=== PATIENT | female | born 1995 | race Native Hawaiian/Other Pacific Islander ===

== ENCOUNTER 2016-10-04 21:03 | Emergency (ER) | payer OTHER ==
[~2016-10-04] VITALS: Ht 170.2 cm; Wt 50.0 kg
[2016-10-04 21:16] VITALS: BP 111/75; PULSE 88; RESP 16; TEMP 98; O2SAT 99
--- NOTE | 2016-10-04 21:25 | PD ---
HPI Chief Complaint: Psychiatric Symptoms Time Seen by Provider: 21:15 Travel History International Travel<30 days: No Contact w/Intl Traveler<30days: No Traveled to known affect area: No History of Present Illness HPI 21-year-old female brought in by ambulance under Mehta act after intentionally cutting her left arm. Patient tells me that she told her RA in her dorm that she was feeling nauseous. At that time they discovered that the patient had intentional wounds to her left arm. Patient states that she did these to herself earlier today because she was mad. When asked specifically with the patient is mad about, she states she is matted everything. She did them with a shaving razor. She denies doing anything else to harm herself. She denies suicidal or homicidal ideation. PFSH Past Medical History Medical History: Denies Significant Hx Immunizations Current: Yes Tetanus Vaccination: < 5 Years Influenza Vaccination: No ?: Unknown LMP: 09/26/16 Past Surgical History Surgical History: No Previous Surgery Social History Alcohol Use: No Tobacco Use: No Substance Use: No Allergies-Medications (Allergen,Severity, Reaction): Coded Allergies: No Known Allergies (Unverified , 10/04/16) Reported Meds & Prescriptions Reported Meds & Active Scripts Active No Active Prescriptions or Reported Medications Review of Systems Except as stated in HPI: all other systems reviewed are Neg Physical Exam Narrative GENERAL: Well-developed, well-nourished, comfortable, no acute distress, tearful SKIN: Focused skin assessment warm/dry. Left anterior forearm with multiple superficial lacerations, a couple with slight venous oozing, none are deep enough to require closure HEAD: Atraumatic. Normocephalic. EYES: Pupils equal and round. No scleral icterus. No injection or drainage. ENT: Mucous membranes pink and moist. NECK: Trachea midline. No JVD. CARDIOVASCULAR: Regular rate and rhythm. Bilateral distal radial pulses are brisk and equal. RESPIRATORY: No accessory muscle use. Clear to auscultation. Breath sounds equal bilaterally. GASTROINTESTINAL: Abdomen soft, non-tender, nondistended. MUSCULOSKELETAL: No obvious deformities. No clubbing. No cyanosis. No edema. NEUROLOGICAL: Awake and alert. No obvious cranial nerve deficits. Motor grossly within normal limits. Normal speech. PSYCHIATRIC: Soft-spoken, poor eye contact, tearful Data Data Last Documented VS Vital Signs Date Time Temp Pulse Resp B/P Pulse Ox O2 Delivery O2 Flow Rate FiO2 10/04/16 21:16 98.0 88 16 111/75 99 Room Air Orders Complete Blood Count With Diff (10/04/16 21:20) Comprehensive Metabolic Panel (10/04/16 21:20) Ed Urine Pregnancytest Poc (10/04/16 21:20) Psych Screen (10/04/16 21:20) Drug Screen, Random Urine (10/04/16 21:20) Alcohol (Ethanol) (10/04/16 21:20) Salicylates (Aspirin) (10/04/16 21:20) Tylenol (Acetaminophen) (10/04/16 21:20) Labs Laboratory Tests Test 10/04/16 22:30 White Blood Count 6.6 TH/MM3 Red Blood Count 4.77 MIL/MM3 Hemoglobin 11.0 GM/DL Hematocrit 34.0 % Mean Corpuscular Volume 71.3 FL Mean Corpuscular Hemoglobin 23.1 PG Mean Corpuscular Hemoglobin 32.4 % Concent Red Cell Distribution Width 14.7 % Platelet Count 346 TH/MM3 Mean Platelet Volume 9.0 FL Neutrophils (%) (Auto) 62.4 % Lymphocytes (%) (Auto) 25.0 % Monocytes (%) (Auto) 12.1 % Eosinophils (%) (Auto) 0.1 % Basophils (%) (Auto) 0.4 % Neutrophils # (Auto) 4.1 TH/MM3 Lymphocytes # (Auto) 1.7 TH/MM3 Monocytes # (Auto) 0.8 TH/MM3 Eosinophils # (Auto) 0.0 TH/MM3 Basophils # (Auto) 0.0 TH/MM3 CBC Comment AUTO DIFF Sodium Level 138 MEQ/L Potassium Level 4.0 MEQ/L Chloride Level 102 MEQ/L Carbon Dioxide Level 26.0 MEQ/L Anion Gap 10 MEQ/L Blood Urea Nitrogen 11 MG/DL Creatinine 0.69 MG/DL Estimat Glomerular Filtration 107 ML/MIN Rate Random Glucose 82 MG/DL Calcium Level 9.0 MG/DL Total Bilirubin 1.2 MG/DL Aspartate Amino Transf 16 U/L (AST/SGOT) Alanine Aminotransferase 21 U/L (ALT/SGPT) Alkaline Phosphatase 59 U/L Total Protein 8.1 GM/DL Albumin 4.1 GM/DL Salicylates Level 1.7 MG/DL Acetaminophen Level LESS THAN 2.0 MCG/ML Ethyl Alcohol Level LESS THAN 3 MG/DL MDM Medical Decision Making Medical Screen Exam Complete: Yes Emergency Medical Condition: Yes Differential Diagnosis Depression, suicidal ideation, self inflicted wounds Narrative Course Vital signs are within normal limits. CBC shows WBC 6.6, hemoglobin 11, hematocrit 34, platelets 346. CMP is unremarkable. Alcohol level, Tylenol level, and salicylate levels are negative. Patient was made aware of the circumstances of a Mehta act. The patient is medically cleared for psychiatric evaluation and disposition by them. Diagnosis Primary Impression: Self-inflicted laceration of wrist Qualified Code: S61.512A - Self-inflicted laceration of wrist, left, initial encounter Scripts No Active Prescriptions or Reported Meds Efren Evans MD Oct 04, 2016 21:25
[2016-10-04 23:00] LABS: AUTOMATED NEUTROPHIL # 4.1 TH/MM3 (1.8-7.7); BASOPHIL % 0.4 % (0.0-2.0); EOSINOPHIL % 0.1 % (0.0-4.0); LYMPHOCYTE # 1.7 TH/MM3 (1.0-4.8); MEAN CELL VOLUME 71.3 FL (80.0-100.0); MEAN CORPUSCULAR HEMOGLOBIN 23.1 PG (27.0-34.0); MEAN CORPUSCULAR HGB CONC 32.4 % (32.0-36.0); MONO % 12.1 % (0.0-8.0); NEUT % 62.4 % (16.0-70.0); PLATELET COUNT 346 TH/MM3 (150-450); RED BLOOD COUNT 4.77 MIL/MM3 (4.00-5.30); RED CELL DISTRIBUTION WIDTH 14.7 % (11.6-17.2); WHITE BLOOD COUNT 6.6 TH/MM3 (4.0-11.0)
[2016-10-04 23:02] LABS: HEMO FLAGS AUTO DIFF
[2016-10-04 23:04] LABS: ANION GAP 10 MEQ/L (5-15)
[2016-10-04 23:07] LABS: ALKALINE PHOSPHATASE 59 U/L (45-117); ALT (GPT) 21 U/L (10-53); AST (GOT) 16 U/L (15-37); BLOOD UREA NITROGEN 11 MG/DL (7-18); CHLORIDE 102 MEQ/L (98-107); GLOMERULAR FILTRATION RATE 107 ML/MIN (>89); SODIUM (NA) 138 MEQ/L (136-145); TOTAL BILIRUBIN ADULT 1.2 MG/DL (0.2-1.0)
[2016-10-04 23:13] LABS: ACETAMINOPHEN LESS THAN 2.0 MCG/ML (10.0-30.0)
[2016-10-05 00:40] VITALS: BP 110/69; PULSE 79; RESP 16; O2SAT 99
[2016-10-05 00:49] LABS: AMPHETAMINE, URINE NEG (NEG); BARBITURATES, URINE NEG (NEG); COCAINE, URINE NEG (NEG)
[2016-10-05 01:16] LABS: SCAN/DIFF AUTO DIFF CONFIRMED
[2016-10-05 02:13] VITALS: BP 115/73; PULSE 88; RESP 16; O2SAT 100
[2016-10-05 06:33] VITALS: BP 132/72; PULSE 73; RESP 18; O2SAT 99
--- NOTE | 2016-10-05 11:10 | PD ---
History of Present Illness Chief Complaint: Psychiatric Symptoms Time Seen by Provider: 10:45 Travel History International Travel<30 Days: No Contact w/Intl Traveler<30days: No Known affected area: No Legal Status Legal Status: Mehta Act Mehta Act Signed By: Mady Loomis History of Present Illness: This is a 21-year-old female who is currently a student at [employer]. She is originally from [place] and is the first person in her family to go to college. She has taken an extraordinary load of courses this semester and is feeling remarkably stressed. As a result, she intentionally cut her wrist. She is terrified of her father's reaction that she may not do well academically this semester. She appears sad and dejected but does not report any suicidal ideation or plan at this time. In fact, she is verbally paulino for safety with this physician. This physician did spend considerable time counseling the patient. She declines antidepressant medication although it was offered. She did accept a letter of medical excuse to withdraw from 2 of her more difficult classes. She also is willing to return to outpatient therapy. Therefore she does not meet Mehta act criteria. She would like to return to school and try to finish her semester. PFSH Past Medical History Medical History: Denies Significant Hx Immunizations Current: Yes Tetanus Vaccination: < 5 Years Influenza Vaccination: No ?: Unknown LMP: 09/26/16 Past Surgical History Surgical History: No Previous Surgery Psychiatric History Psychiatric History Hx Psychiatric Treatment: PATIENT DENIES ANY SIGNIFICANT PSYCHIATRIC HISTORY. Missed psychotherapy appointments but willing to go back and try again. History of Inpatient Treatment: No Social History Hx Alcohol Use: No Hx Tobacco Use: No Hx Substance Use: No Hx of Substance Use Treatment: No Allergies-Medications (Allergen,Severity, Reaction): Coded Allergies: No Known Allergies (Unverified , 10/04/16) Reported Meds & Prescriptions Reported Meds & Active Scripts Active No Active Prescriptions or Reported Medications Review of Systems ROS Limitations: Clinical Condition Exam Exam Limitations: Clinical Condition Alert: Yes [place]: Person, Place, Date Mood: Anxious, Calm Affect: Restricted Speech: Clear, Logical Eye Contact: Normal Memory Intact: Immediate, Recent, Remote Insight/Judgement Adequate. MDM Medical Decision Making Medical Record Reviewed: Yes Assessment/Plan As the patient has consistently indicated that she was not cutting herself in a suicide attempt, this physician feels as a competent person, she can determine her next course of treatment. As she does not wish hospitalization or antidepressant medicine but she is willing to go back to counseling, this physician feels this plan is least restrictive. She was given a medical excuse regarding her physics course and communications training course. Mehta act was lifted. Orders Complete Blood Count With Diff (10/04/16 21:20) Comprehensive Metabolic Panel (10/04/16 21:20) Ed Urine Pregnancytest Poc (10/04/16 21:20) Psych Screen (10/04/16 21:20) Drug Screen, Random Urine (10/04/16 21:20) Alcohol (Ethanol) (10/04/16 21:20) Salicylates (Aspirin) (10/04/16 21:20) Tylenol (Acetaminophen) (10/04/16 21:20) Diet Regular Basic (10/05/16 Breakfast) Results Vital Signs Date Time Temp Pulse Resp B/P Pulse Ox O2 Delivery O2 Flow Rate FiO2 10/05/16 06:33 73 18 132/72 99 Room Air 10/05/16 02:13 88 16 115/73 100 Room Air 10/05/16 00:40 79 16 110/69 99 Room Air 10/04/16 21:16 98.0 88 16 111/75 99 Room Air Laboratory Tests Test 10/04/16 10/05/16 22:30 00:30 Sodium Level 138 Potassium Level 4.0 Chloride Level 102 Carbon Dioxide Level 26.0 Anion Gap 10 Blood Urea Nitrogen 11 Creatinine 0.69 Estimat Glomerular Filtration 107 Rate Random Glucose 82 Calcium Level 9.0 Total Bilirubin 1.2 Aspartate Amino Transf 16 (AST/SGOT) Alanine Aminotransferase 21 (ALT/SGPT) Alkaline Phosphatase 59 Total Protein 8.1 Albumin 4.1 Salicylates Level 1.7 Acetaminophen Level LESS THAN 2.0 Ethyl Alcohol Level LESS THAN 3 White Blood Count 6.6 Red Blood Count 4.77 Hemoglobin 11.0 Hematocrit 34.0 Mean Corpuscular Volume 71.3 Mean Corpuscular Hemoglobin 23.1 Mean Corpuscular Hemoglobin 32.4 Concent Red Cell Distribution Width 14.7 Platelet Count 346 Mean Platelet Volume 9.0 Neutrophils (%) (Auto) 62.4 Lymphocytes (%) (Auto) 25.0 Monocytes (%) (Auto) 12.1 Eosinophils (%) (Auto) 0.1 Basophils (%) (Auto) 0.4 Neutrophils # (Auto) 4.1 Lymphocytes # (Auto) 1.7 Monocytes # (Auto) 0.8 Eosinophils # (Auto) 0.0 Basophils # (Auto) 0.0 CBC Comment AUTO DIFF Differential Comment AUTO DIFF CONFIRMED Urine Opiates Screen NEG Urine Barbiturates Screen NEG Urine Amphetamines Screen NEG Urine Benzodiazepines Screen NEG Urine Cocaine Screen NEG Urine Cannabinoids Screen NEG Diagnosis Primary Impression: Adjustment disorder with mixed disturbance of emotions and conduct Prescriptions No Active Prescriptions or Reported Meds Jeremy Chung MD Oct 05, 2016 11:10
== END 2016-10-05 12:40 | disposition home or self-care (01) ==
LOC: NEPD 21:03 → NEPJ 10-05 12:40
DX: S61.512A Laceration without foreign body of left wrist, initial encounter (principal); F43.25 Adjustment disorder with mixed disturbance of emotions and conduct; Y28.8XXA Contact with other sharp object, undetermined intent, initial encounter
CPT/HCPCS: 80053; 80307; 84703; 85025; 99283